=== PATIENT | male | born 1990 | race African-American/Black ===

== ENCOUNTER 2020-01-09 17:46 | Emergency (ER) | payer BC ==
--- NOTE | 2020-01-09 18:29 | EDM.PDOC ---
ED HPI GENERAL MEDICAL PROBLEM - General Chief Complaint: Lower Extremity Injury/Pain Stated Complaint: POP IN RIGHT CALF Time Seen by Provider: 01/09/20 18:05 Source of Information: Reports: Patient History Limitations: Reports: No Limitations - History of Present Illness INITIAL COMMENTS - FREE TEXT/NARRATIVE: Patient was playing basketball when all of a sudden he heard a pop over the right calf. The pain is sharp, 5/10, worse with ambulation. - Related Data Allergies Allergy/AdvReac Type Severity Reaction Status Date / Time No Known Allergies Allergy Verified 01/09/20 17:56 Home Meds: Home Meds Cyclobenzaprine [Flexeril] 10 mg PO TID PRN #15 tab 01/09/20 [Rx] Ibuprofen 800 mg PO TID PRN #30 tablet 01/09/20 [Rx] Past Medical History - Past Health History Medical/Surgical History: Denies Medical/Surgical History Musculoskeletal History: Reports: Other (See Below) Other Musculoskeletal History: obesity Social & Family History - Family History Family Medical History: Noncontributory - Tobacco Use Smoking Status *Q: Never Smoker Second Hand Smoke Exposure: No - Caffeine Use Caffeine Use: Reports: Energy Drinks, Soda - Recreational Drug Use Recreational Drug Use: No Review of Systems - Review of Systems Review Of Systems: See Below Constitutional: Reports: No Symptoms Ears: Reports: No Symptoms Nose: Reports: No Symptoms Mouth/Throat: Reports: No Symptoms Respiratory: Reports: No Symptoms Cardiovascular: Reports: No Symptoms GI/Abdominal: Reports: No Symptoms Genitourinary: Reports: No Symptoms Musculoskeletal: Reports: Leg Pain, Muscle Stiffness Skin: Reports: No Symptoms Neurological: Reports: No Symptoms ED EXAM, GENERAL - Physical Exam Exam: See Below Exam Limited By: No Limitations General Appearance: Alert, No Apparent Distress Ears: Normal External Exam, Normal Canal Nose: Normal Inspection, Normal Mucosa Throat/Mouth: Normal Inspection, Normal Lips, Normal Teeth Head: Atraumatic, Normocephalic Neck: Normal Inspection, Supple, Non-Tender Respiratory/Chest: No Respiratory Distress, Lungs Clear, Normal Breath Sounds Cardiovascular: Normal Peripheral Pulses, Regular Rate, Rhythm, No Edema GI/Abdominal: Normal Bowel Sounds, Soft Back Exam: Normal Inspection, Full Range of Motion Extremities: Normal Inspection, Normal Range of Motion, Leg Pain, Other (tenderness right calf) Course - Vital Signs Text/Narrative:: xrayrt tib/fib-neg flexeril 10 mg [o x1 Tyelenol 1000 mg po x1 Ibuprofen 800 mg po x1 Last Recorded V/S: Last Vital Signs Temp Pulse 108 H 01/09/20 17:58 Resp 17 01/09/20 17:58 BP 163/114 H 01/09/20 17:58 Pulse Ox 96 01/09/20 17:58 - Orders/Labs/Meds Orders: Active Orders 24 hr Category Date Time Status Tibia Fibula Rt [CR] Stat Exams 01/09/20 18:00 Ordered Departure - Departure Time of Disposition: 18:40 Disposition: Home, Self-Care 01 Condition: Good Clinical Impression: Muscle strain - Discharge Information Prescriptions: Cyclobenzaprine [Flexeril] 10 mg PO TID PRN #15 tab PRN Reason: Muscle Spasm Ibuprofen 800 mg PO TID PRN #30 tablet PRN Reason: Pain Referrals: PCP,None [Primary Care Provider] - Additional Instructions: please read discharge instructions on muscle strain Apply ICE Elevate Take the follow ing medicines all at the same time for better pain relief: Flexeril 10 mg,Ibuprofen 800 mg, tylenol 1000 mg 3 times daily as needed for spasms and pain Follow up as needed Sepsis Event Note (ED) - Evaluation Sepsis Screening Result: No Definite Risk - Focused Exam Vital Signs: Vital Signs Pulse Resp BP Pulse Ox 01/09/20 17:58 108 H 17 163/114 H 96 - My Orders Last 24 Hours: My Active Orders 01/09/20 18:00 Tibia Fibula Rt [CR] Stat - Assessment/Plan Last 24 Hours: My Active Orders 01/09/20 18:00 Tibia Fibula Rt [CR] Stat
[2020-01-09] MEDS ORDERED: Ibuprofen 800 MG Tab PO ONE (18:32)
[2020-01-09] MEDS ORDERED: Cyclobenzaprine 10 MG Tab PO ONE (18:32)
[2020-01-09] MEDS ORDERED: Acetaminophen 500 MG Tab PO ONE (18:32)
--- NOTE | 2020-01-12 10:32 | CR ---
INDICATION: Running and felt a pop in his lower calf muscle - right lower leg pain - injury. RIGHT TIB/FIB: Four images of the right tibia and fibula were obtained 01/09/20. A soft tissue calcification is noted anterior to the tibia at the proximal third of the shaft likely representing a dystrophic calcification from previous injury in that area. It could also represent a phlebolith. There are other probable phleboliths present additionally. Hypertrophic changes are noted at the ankle compatible with osteoarthritis. Hypertrophic changes are also noted at the navicular bone and first cuneiform. Posterior calcaneal spur of small size is noted. The ankle mortise and knee joint appear to be grossly intact. Overall bone density appeared normal without a definite fracture or dislocation identified. IMPRESSION: No acute bone or joint abnormality. If occult fracture site is suspected clinically, reexamination in 10-14 days may be helpful. MTDD
== END 2020-01-09 19:00 | disposition home or self-care (01) ==
LOC: FB.ED 17:46
DX: S86.911A Strain of unspecified muscle(s) and tendon(s) at lower leg level, right leg, initial encounter (principal); E66.9 Obesity, unspecified; Z68.43 Body mass index [BMI] 50.0-59.9, adult; X58.XXXA Exposure to other specified factors, initial encounter; Y93.67 Activity, basketball
CPT/HCPCS: 73590-RT; 99283; A9270-GY